=== PATIENT | male | born 1970 | race Caucasian/White ===

== ENCOUNTER → 2020-10-25 13:48 | Outpatient (BNVA) | payer OTHER, SELFPAY | PROVIDERS: Referring Provider Family Medicine; Visit Provider Internal Medicine | DX: E11.65 Type 2 diabetes mellitus with hyperglycemia (principal); E16.0 Drug-induced hypoglycemia without coma; T38.3X5A Adverse effect of insulin and oral hypoglycemic [antidiabetic] drugs, initial encounter; E78.2 Mixed hyperlipidemia; K86.1 Other chronic pancreatitis | CPT/HCPCS: 99205 ==